=== PATIENT | female | born 1980 | race Caucasian/White ===

== ENCOUNTER 2023-12-09 13:16 | Emergency (ER) | payer OTHER ==
[~2023-12-09] VITALS: Ht 162.6 cm; Wt 89.2 kg
[2023-12-09 18:49] VITALS: TEMP 97.9
[2023-12-09] MEDS: IBUPROFEN 800 MG TAB PO ONE (19:16)
[2023-12-09] MEDS ORDERED: IBUP-1022 PO (21:27)
[2023-12-09 21:37] VITALS: BP 130/74; O2SAT 99
== END 2023-12-09 21:38 | disposition home or self-care (01) ==
LOC: M ED 13:16
DX: N60.02 Solitary cyst of left breast (principal); Z91.011 Allergy to milk products; Z79.1 Long term (current) use of non-steroidal anti-inflammatories (NSAID)